=== PATIENT | female | born 1980 | race Caucasian/White ===

== ENCOUNTER 2019-07-16 18:08 | Emergency (ER) | payer MEDICAID ==
[~2019-07-16] VITALS: Ht 172.7 cm; Wt 75.0 kg
[2019-07-16 18:15] VITALS: BP 146/86
[2019-07-16] MEDS ORDERED: SODIUM CHLORIDE 0.9% 1,000 ML IV ONE (18:15)
[2019-07-16] MEDS: ONDANSETRON HCL 4 MG/2 ML VIAL IVP ONE (18:38)
[2019-07-16] MEDS: KETOROLAC TROMETHAMINE 30 MG/ML VIAL IVP ONE (18:38)
== END 2019-07-16 18:43 | disposition left against medical advice (07) ==
LOC: EMS 18:09
DX: R10.9 Unspecified abdominal pain (principal); R11.2 Nausea with vomiting, unspecified; Z76.5 Malingerer [conscious simulation]
CPT/HCPCS: 96374; 96375; 99283; J1885; J2405; J7030

== ENCOUNTER 2021-03-20 07:31 | Emergency (ER) | payer MEDICAID ==
[~2021-03-20] VITALS: Ht 162.6 cm; Wt 77.3 kg
[2021-03-20 07:38] VITALS: BP 141/89
[2021-03-20] MEDS ORDERED: HYDROCODONE/ACETAMINOPHEN 5-325 MG TABLET PO ONE (08:15)
[2021-03-20] MEDS ORDERED: IBUPROFEN 600 MG TABLET PO ONE (08:15)
[2021-03-20] MEDS ORDERED: LIDOCAINE 1% 10 ML VIAL SQ ONE (10:00)
[2021-03-20] MEDS ORDERED: BACITRACIN 0.9 GM PACKET OINTMENT TP ONE (10:00)
[2021-03-20] MEDS: PERTUSS(ACELL),DIPH,TET VAC/PF 0.5 ML SYRINGE IM. ONE ×2 (10:12→11:13)
== END 2021-03-20 11:40 | disposition home or self-care (01) ==
LOC: EMS 07:31
DX: S61.211A Laceration without foreign body of left index finger without damage to nail, initial encounter (principal); Z87.442 Personal history of urinary calculi; W26.0XXA Contact with knife, initial encounter; Y93.89 Activity, other specified; Y92.89 Other specified places as the place of occurrence of the external cause; Y99.8 Other external cause status
CPT/HCPCS: 12002; 90471; 90715; 99283; J3490

== ENCOUNTER 2023-09-22 16:51 | Emergency (ER) | payer MEDICAID, OTHER ==
[~2023-09-22] VITALS: Ht 172.7 cm; Wt 81.8 kg
[2023-09-22 16:57] VITALS: TEMP 97.8
[2023-09-22] MEDS ORDERED: CHLO25CA5 PO (17:00)
[2023-09-22] MEDS: ChlordiazePOXIDE HCL 25 MG CAPSULE PO ONE (17:06)
[2023-09-22] MEDS ORDERED: CHLO10CA7 PO (19:09)
[2023-09-22] MEDS: SODIUM CHLORIDE 0.9% 1,000 ML IV ONE (19:53)
[2023-09-22 19:54] VITALS: BP 132/89; PULSE 106; RESP 16
== END 2023-09-22 19:55 | disposition home or self-care (01) ==
LOC: EMS 17:04
DX: F10.239 Alcohol dependence with withdrawal, unspecified (principal); Y90.9 Presence of alcohol in blood, level not specified
CPT/HCPCS: 99283

== ENCOUNTER 2024-03-20 20:54 | Emergency (ER) | payer OTHER ==
[~2024-03-20] VITALS: Ht 172.7 cm; Wt 81.8 kg
[~2024-03-20 20:54] MED LIST: CHLO10CA7 PO; CHLO25CA5 PO
[2024-03-20 21:06] VITALS: BP 152/97; PULSE 128; RESP 16; TEMP 98.9; O2SAT 98
== END 2024-03-20 23:54 | disposition left against medical advice (07) ==
LOC: EMS 20:54
DX: R56.9 Unspecified convulsions (principal); R06.02 Shortness of breath; Z53.21 Procedure and treatment not carried out due to patient leaving prior to being seen by health care provider
CPT/HCPCS: 93005

== ENCOUNTER 2024-03-21 01:36 | Emergency (ER) | payer MEDICAID, OTHER ==
[~2024-03-21] VITALS: Ht 175.3 cm; Wt 81.4 kg
[2024-03-21 01:57] VITALS: BP 138/83; PULSE 98; RESP 24; TEMP 99; O2SAT 98
[2024-03-21 02:37] LABS: BASOPHILS % (AUTO) 0.5 % (0.0-2.0); EOSINOPHILS % (AUTO) 4.8 % (1.0-6.0); HEMOGLOBIN 11.5 g/dL (12.0-16.0); LYMPHOCYTES # (AUTO) 1.9 K/uL (1.0-4.8); LYMPHOCYTES % (AUTO) 30.1 % (22.0-44.0); MEAN CORPUSCULAR HEMOGLOBIN 23.4 pg (26.0-34.0); MEAN CORPUSCULAR HGB CONC 31.1 G/dL (31.0-37.0); MEAN CORPUSCULAR VOLUME 75 fL (80-100); MONOCYTES # (AUTO) 0.5 K/uL (0.1-1.0); MONOCYTES % (AUTO) 7.5 % (2.0-9.0); NEUTROPHILS # (AUTO) 3.6 K/uL (1.8-7.7); NEUTROPHILS % (AUTO) 57.1 % (40.0-70.0); PLATELET COUNT (AUTO) 475 K/uL (150-450); RED BLOOD CELL COUNT(AUTO) 4.93 MIL/uL (4.00-5.20); RED CELL DISTRIBUTION WIDTH 19.3 % (11.5-14.5); WHITE BLOOD COUNT (AUTO) 6.4 K/uL (4.5-11.0)
[2024-03-21 02:40] LABS: RBC MORPHOLOGY COMMENT ABNORMAL RBC MORPH
[2024-03-21 02:48] LABS: ANION GAP 10 mmol/L (8-16); CALCIUM, TOTAL 8.4 mg/dL (8.8-10.5); CARBON DIOXIDE 25 mmol/L (22-29); CHLORIDE 105 mmol/L (98-107); CREATININE 0.78 mg/dL (0.60-1.30); GLOMERULAR FILTR. RATE CALC > 60 mL/min (>60); GLUCOSE,RANDOM 114 mg/dL (70-110); POTASSIUM 3.9 mmol/L (3.5-5.1); SODIUM SERUM 140 mmol/L (136-145); UREA NITROGEN, BLOOD 13 mg/dL (7-18)
[2024-03-21 02:58] LABS: ALCOHOL, BLOOD (SERUM) 154 mg/dL (0-10)
== END 2024-03-21 05:43 | disposition left against medical advice (07) ==
LOC: EMS 01:36
DX: F10.239 Alcohol dependence with withdrawal, unspecified (principal); R11.10 Vomiting, unspecified; Z53.21 Procedure and treatment not carried out due to patient leaving prior to being seen by health care provider; Y90.6 Blood alcohol level of 120-199 mg/100 ml
CPT/HCPCS: 36415; 80048; 85025; 84703; 83735; G0480

== ENCOUNTER 2024-03-24 14:56 | Inpatient (IN) | payer MEDICAID ==
[~2024-03-24] VITALS: Ht 172.7 cm; Wt 81.0 kg
[2024-03-24] MEDS ORDERED: RISP0.5T39 PO (15:39)
[2024-03-24] MEDS ORDERED: TRAZ-257 PO (15:39)
[2024-03-24 15:59] LABS: BASOPHILS % (AUTO) 0.5 % (0.0-2.0); EOSINOPHILS % (AUTO) 4.3 % (1.0-6.0); HEMOGLOBIN 11.8 g/dL (12.0-16.0); LYMPHOCYTES # (AUTO) 1.4 K/uL (1.0-4.8); LYMPHOCYTES % (AUTO) 24.1 % (22.0-44.0); MEAN CORPUSCULAR HEMOGLOBIN 22.9 pg (26.0-34.0); MEAN CORPUSCULAR HGB CONC 30.2 G/dL (31.0-37.0); MEAN CORPUSCULAR VOLUME 76 fL (80-100); MONOCYTES # (AUTO) 0.5 K/uL (0.1-1.0); MONOCYTES % (AUTO) 9.2 % (2.0-9.0); NEUTROPHILS # (AUTO) 3.5 K/uL (1.8-7.7); NEUTROPHILS % (AUTO) 61.9 % (40.0-70.0); PLATELET COUNT (AUTO) 449 K/uL (150-450); RED BLOOD CELL COUNT(AUTO) 5.14 MIL/uL (4.00-5.20); RED CELL DISTRIBUTION WIDTH 19.6 % (11.5-14.5); WHITE BLOOD COUNT (AUTO) 5.7 K/uL (4.5-11.0)
[2024-03-24 16:10] LABS: ANION GAP 11 mmol/L (8-16); CALCIUM, TOTAL 9.1 mg/dL (8.8-10.5); CARBON DIOXIDE 27 mmol/L (22-29); CHLORIDE 103 mmol/L (98-107); CREATININE 0.77 mg/dL (0.60-1.30); GLOMERULAR FILTR. RATE CALC > 60 mL/min (>60); GLUCOSE,RANDOM 101 mg/dL (70-110); SODIUM SERUM 141 mmol/L (136-145); UREA NITROGEN, BLOOD 13 mg/dL (7-18)
[2024-03-24 16:17] LABS: ALCOHOL, BLOOD (SERUM) < 3 mg/dL (0-10)
[2024-03-24 16:21] LABS: ALANINE AMINOTRANSFERASE 23 U/L (12-78); ALBUMIN 3.4 g/dL (3.4-5.0); ALKALINE PHOSPHATASE 77 U/L (46-116); ASPARTATE AMINOTRANSFERASE 23 U/L (15-37); BILIRUBIN,TOTAL 0.7 mg/dL (0.1-1.0); HCG,QUANTITATIVE 1 mIU/mL (0-6); LIPASE 34 U/L (16-77); TOTAL PROTEIN, SERUM 7.1 g/dL (6.4-8.2)
[2024-03-24 16:43] LABS: RBC MORPHOLOGY COMMENT ABNORMAL RBC MORPH
[2024-03-24 17:25] LABS: APPEARANCE,URINE HAZY (CLEAR); BILIRUBIN,URINE NEGATIVE (NEGATIVE); COLOR,URINE LIGHT YELLOW (YELLOW); GLUCOSE, URINE (UA) NEGATIVE (NEGATIVE); KETONES,URINE NEGATIVE (NEGATIVE); LEUKOCYTE ESTERASE ,URINE SMALL (NEGATIVE); NITRATE,URINE NEGATIVE (NEGATIVE); OCCULT BLOOD,URINE SMALL (NEGATIVE); PROTEIN,URINE 100-200,SEE CONFIRM mg/dL (NEGATIVE); SPECIFIC GRAVITIY, URINE 1.025 (1.003-1.030); UROBILINOGEN,URINE <=1.0 mg/dL (<=1.0)
[2024-03-24] MEDS: SODIUM CHLORIDE 0.9% 1,000 ML IV ONE (17:32)
[2024-03-24] MEDS: ONDANSETRON HCL 4 MG/2 ML VIAL IVP ONE (17:32)
[2024-03-24] MEDS: LORazepam 2 MG/ML VIAL IVP ONE (17:32)
[2024-03-24 17:44] LABS: RBC,URINE 0-2 /HPF (0-2)
[2024-03-24 17:45] LABS: BACTERIA,URINE Many /HPF (None Seen); SQUAMOUS EPITHELIAL CELL,UR Many /LPF (None Seen)
[2024-03-24 17:56] LABS: SULFOSALICYLIC ACID,URINE 2+ (Negative)
[2024-03-24 18:18] LABS: ALCOHOL, URINE DRUG SCREEN NEGATIVE (NEGATIVE); AMPHET/METH SCREEN,URINE POSITIVE (NEGATIVE); BARBITURATE SCREEN, URINE POSITIVE (NEGATIVE); BENZODIAZEPINES SCREEN,URINE POSITIVE (NEGATIVE); CANNABINOID SCREEN,URINE POSITIVE (NEGATIVE); COCAINE SCREEN,URINE NEGATIVE (NEGATIVE); METHADONE SCREEN, URINE NEGATIVE (NEGATIVE); OPIATE SCREEN,URINE NEGATIVE (NEGATIVE); PHENCYCLIDINE SCREEN,URINE NEGATIVE (NEGATIVE)
[2024-03-24] MEDS: MAGNESIUM SULFATE 2 GM, MVI, ADULT NO.1 WITH VIT K 10 ML, THIAMINE 100 MG, FOLIC ACID 1... IV ONE (18:24)
[2024-03-24] MEDS ORDERED: ZOLPIDEM TARTRATE 5 MG TABLET PO PRN (20:00)
[2024-03-24] MEDS ORDERED: LORazepam 2 MG TABLET PO PRN (20:00)
[2024-03-24] MEDS ORDERED: ACETAMINOPHEN 325 MG TABLET PO PRN (20:00)
[2024-03-24] MEDS ORDERED: HYDROCODONE/ACETAMINOPHEN 5-325 MG TABLET PO PRN (20:00)
[2024-03-24] MEDS ORDERED: ALBUTEROL SULFATE 2.5 MG/0.5 ML NEB SOLUTION NEB PRN (20:00)
[2024-03-24] MEDS ORDERED: ONDANSETRON HCL 4 MG/2 ML VIAL IVP PRN (20:00)
[2024-03-24] MEDS ORDERED: MORPHINE SULFATE 2 MG/ML SYRINGE IVP PRN (20:00)
[2024-03-24] MEDS ORDERED: BISACODYL 10 MG RECTAL RECTAL SUPPOSITORY PR PRN (20:00)
[2024-03-24] MEDS ORDERED: MAGNESIUM HYDROXIDE SUSPENSION 30 ML UDCUP PO PRN (20:00)
[2024-03-24] MEDS ORDERED: IPRATROPIUM BROMIDE 0.5 MG/2.5 ML NEB SOLUTION NEB PRN (20:00)
[2024-03-24 22:19] VITALS: BP 141/89; PULSE 89; RESP 18; TEMP 98.3; O2SAT 97
[2024-03-24] MEDS: 1: MAGNESIUM SULFATE 2 GM, MVI, ADULT NO.1 WITH VIT K 10 ML, THIAMINE 100 MG, FOLIC ACID IV SCH (23:13)
[2024-03-25] MEDS: HEPARIN SODIUM,PORCINE 5,000 UNITS/ML VIAL SQ SCH
[2024-03-25 01:47] VITALS: BP 147/87; PULSE 94; RESP 18; TEMP 98; O2SAT 98
[2024-03-25] MEDS: LORazepam 2 MG/ML VIAL IVP PRN (01:57)
[2024-03-25 04:36] VITALS: BP 141/87; PULSE 80; RESP 18; TEMP 98.6; O2SAT 100
[2024-03-25] MEDS ORDERED: LORazepam 2 MG TABLET PO PRN (07:00)
[2024-03-25 08:18] VITALS: BP 149/83; PULSE 89; RESP 19; TEMP 98; O2SAT 97
[2024-03-25] MEDS: LORazepam 2 MG TABLET PO SCH (08:26)
[2024-03-25] MEDS: PANTOPRAZOLE SODIUM 40 MG DR TABLET PO SCH (08:26)
[2024-03-25 16:00] VITALS: BP 142/82; PULSE 86; RESP 18; TEMP 98; O2SAT 97
[2024-03-25 20:00] VITALS: BP 151/97; PULSE 102; RESP 20; O2SAT 98
[2024-03-26] VITALS: BP 150/91; PULSE 86; RESP 18; O2SAT 98
[2024-03-26] MEDS ORDERED: SODIUM CHLORIDE 0.9% 1,000 ML ONE (02:01)
[2024-03-26 04:00] VITALS: BP 141/91; PULSE 87; RESP 19; O2SAT 97
[2024-03-26 08:00] VITALS: BP 130/90; PULSE 86; RESP 18; TEMP 97.8; O2SAT 96
[2024-03-26 12:54] LABS: BASOPHILS % (AUTO) 0.3 % (0.0-2.0); EOSINOPHILS % (AUTO) 5.4 % (1.0-6.0); HEMATOCRIT 35.7 % (36-46); LYMPHOCYTES # (AUTO) 1.3 K/uL (1.0-4.8); MEAN CORPUSCULAR HEMOGLOBIN 23.4 pg (26.0-34.0); MEAN CORPUSCULAR HGB CONC 30.8 G/dL (31.0-37.0); MEAN CORPUSCULAR VOLUME 76 fL (80-100); MONOCYTES # (AUTO) 0.3 K/uL (0.1-1.0); MONOCYTES % (AUTO) 4.9 % (2.0-9.0); NEUTROPHILS # (AUTO) 4.6 K/uL (1.8-7.7); NEUTROPHILS % (AUTO) 70.4 % (40.0-70.0); PLATELET COUNT (AUTO) 334 K/uL (150-450); RED BLOOD CELL COUNT(AUTO) 4.69 MIL/uL (4.00-5.20); RED CELL DISTRIBUTION WIDTH 18.6 % (11.5-14.5); WHITE BLOOD COUNT (AUTO) 6.6 K/uL (4.5-11.0)
[2024-03-26 13:10] LABS: ALANINE AMINOTRANSFERASE 17 U/L (12-78); ALBUMIN 2.5 g/dL (3.4-5.0); ALKALINE PHOSPHATASE 68 U/L (46-116); ANION GAP 8 mmol/L (8-16); ASPARTATE AMINOTRANSFERASE 12 U/L (15-37); BILIRUBIN,TOTAL 0.3 mg/dL (0.1-1.0); CALCIUM, TOTAL 7.8 mg/dL (8.8-10.5); CARBON DIOXIDE 24 mmol/L (22-29); CHLORIDE 104 mmol/L (98-107); CREATININE 0.68 mg/dL (0.60-1.30); GLOMERULAR FILTR. RATE CALC > 60 mL/min (>60); GLUCOSE,RANDOM 95 mg/dL (70-110); POTASSIUM 3.9 mmol/L (3.5-5.1); SODIUM SERUM 136 mmol/L (136-145); TOTAL PROTEIN, SERUM 5.7 g/dL (6.4-8.2); UREA NITROGEN, BLOOD 7 mg/dL (7-18)
[2024-03-26 13:24] LABS: RBC MORPHOLOGY COMMENT ABNORMAL RBC MORPH
[2024-03-26 16:00] VITALS: BP 150/80; PULSE 88; RESP 18; TEMP 98.5; O2SAT 97
[2024-03-26 20:00] VITALS: BP 128/87; PULSE 96; RESP 19; TEMP 98.2; O2SAT 99
[2024-03-26 23:17] VITALS: BP 136/77; PULSE 89; RESP 18; TEMP 98; O2SAT 98
[2024-03-27 04:27] VITALS: BP 137/83; PULSE 80; RESP 18; TEMP 97.7; O2SAT 99
[2024-03-27] MEDS ORDERED: SODIUM CHLORIDE 0.9% 1,000 ML ONE (04:32)
[2024-03-27] MEDS ORDERED: LORazepam 1 MG TABLET PO PRN (07:00)
[2024-03-27 08:29] VITALS: BP 130/71; PULSE 79; RESP 18; TEMP 97.6; O2SAT 98
[2024-03-27] MEDS: LORazepam 1 MG TABLET PO SCH (08:57)
[2024-03-27 12:46] VITALS: BP 126/88; PULSE 85; RESP 18; TEMP 97.9; O2SAT 94
[2024-03-27] MEDS ORDERED: THIA100T80 PO (14:03)
[2024-03-27] MEDS ORDERED: LORA-1000 PO (14:03)
[2024-03-27] MEDS ORDERED: FOLI0.4T6 PO (14:03)
[2024-03-27] MEDS ORDERED: MULT-1203 PO (14:03)
[2024-03-28] MEDS ORDERED: LORazepam 1 MG TABLET PO PRN (07:00)
== END 2024-03-27 14:55 | disposition home or self-care (01) | DRG 775 ==
LOC: EMS 14:56 → EDH 21:10 → 5N 22:10 → 4E 03-26 23:00
PROVIDERS: ADMIT Hospitalist; ATTEND Hospitalist
DX: F10.239 Alcohol dependence with withdrawal, unspecified (principal); E43 Unspecified severe protein-calorie malnutrition; Y90.9 Presence of alcohol in blood, level not specified; Z87.442 Personal history of urinary calculi; Z87.891 Personal history of nicotine dependence; Z90.49 Acquired absence of other specified parts of digestive tract; Z68.27 Body mass index [BMI] 27.0-27.9, adult
CPT/HCPCS: 80053; 80307; 81001; 81002; 83690; 84702; 85025; 93005; 99285; G0378; G0480; J1644; J2060; J2405; J3411; J3475; J3490; J7030

== ENCOUNTER 2025-06-03 19:50 | Emergency (ER) | payer MEDICAID, OTHER ==
[~2025-06-03] VITALS: Ht 172.7 cm; Wt 88.2 kg
[~2025-06-03 19:50] MED LIST changes: -CHLO10CA7 PO; -CHLO25CA5 PO; +FOLI0.4T6 PO; +LORA1TAB25 PO; +MULT-1203 PO; +RISP0.5T39 PO; +THIA100T80 PO; +TRAZ-257 PO
[2025-06-03 19:59] VITALS: TEMP 98.6
[2025-06-03 20:29] LABS: APPEARANCE,URINE CLEAR (CLEAR); GLUCOSE, URINE (UA) NEGATIVE (NEGATIVE); LEUKOCYTE ESTERASE ,URINE MODERATE (NEGATIVE); NITRATE,URINE NEGATIVE (NEGATIVE); OCCULT BLOOD,URINE NEGATIVE (NEGATIVE); SPECIFIC GRAVITIY, URINE 1.043 (1.003-1.030)
[2025-06-03] MEDS: KETOROLAC TROMETHAMINE 30 MG/ML VIAL IM ONE (20:33)
[2025-06-03 20:40] LABS: SQUAMOUS EPITHELIAL CELL,UR Moderate /LPF (None Seen)
[2025-06-03] MEDS: HYDROCODONE/ACETAMINOPHEN 10-325 MG TABLET PO ONE (21:42)
[2025-06-03 22:31] VITALS: BP 130/71; PULSE 99; RESP 24; O2SAT 98
== END 2025-06-04 00:39 | disposition home or self-care (01) ==
LOC: EMS 19:51
DX: R10.20 Pelvic and perineal pain unspecified side (principal); D21.9 Benign neoplasm of connective and other soft tissue, unspecified; F10.239 Alcohol dependence with withdrawal, unspecified; F17.210 Nicotine dependence, cigarettes, uncomplicated; R11.2 Nausea with vomiting, unspecified; Z86.018 Personal history of other benign neoplasm; Z87.442 Personal history of urinary calculi; Z90.49 Acquired absence of other specified parts of digestive tract; Z79.899 Other long term (current) drug therapy; Y90.9 Presence of alcohol in blood, level not specified
CPT/HCPCS: 99285; 76830; 76856; 81001; 87077; 87086; 96372; J1885; 87186